=== PATIENT | male | born 1935 | race Caucasian/White ===

== ENCOUNTER 2016-07-14 21:04 | Emergency (ER) | payer MEDICARE, MEDICAID ==
--- NOTE | 2016-07-17 12:45 | ER ---
ADMIT: 07/14/2016 RM/LOC: ER [facility] MR#: [id number] [id number] [id number] ZAIRA FORRESTMOND Jamee [address] [place] [address] Emergency Room Report SEX: M AGE: 80 : 1935 DATE: 07/14/2016 SUBJECTIVE: The patient is a 80-year-old male with a past medical history of diabetes, hypertension, dementia, and who was brought to the ER with a chief complaint of right knee pain status post ground level fall. Per EMS, in the nursing care facility, they denied loss of consciousness or head trauma. The patient is alert and oriented to person, is not oriented to place and time, but he has a history of dementia. The patient recalls the incident vividly and he states that he tripped and he had no loss of consciousness and no head trauma. The patient complains of right knee pain. The patient denies any headaches, neck pain, nausea, vomiting, visual changes, chest pain, shortness of breath, and abdominal pain. PHYSICAL EXAMINATION: VITAL SIGNS: The patient has stable vitals. HEAD AND NECK: There is no sign of trauma, and blood sugar was also in the range of 200s checked by the paramedics. CHEST: Clear. No crepitation. HEART: Normal heart sounds. ABDOMEN: Soft. PELVIS: Stable. No tenderness in the abdomen. There is some mild swelling without any ballottement in the right knee, and there were some abrasions also on the right knee. Normal peripheral pulses. Normal active and passive range of motion in all extremities. There is very mild swelling on the right ankle without any tenderness on the malleolus. X-ray of the right ankle and right knee was negative for any fractures or dislocation. With the diagnosis of right knee abrasions and contusion, right ankle contusion and ground level fall, the patient was stable to be discharged to the nursing care facility to be followed up by the primary doctor as needed. Adama Price MD/ frantz JOB #: [id number] CC: Hamilton Dobson MD, Attending Physician
== END 2016-07-14 22:23 | disposition home or self-care (01) ==
LOC: ER 21:04
DX: S80.01XA Contusion of right knee, initial encounter (principal); S90.01XA Contusion of right ankle, initial encounter; E11.9 Type 2 diabetes mellitus without complications; I10 Essential (primary) hypertension; F32.9 Major depressive disorder, single episode, unspecified; F03.90 Unspecified dementia, unspecified severity, without behavioral disturbance, psychotic disturbance, mood disturbance, and anxiety; F41.9 Anxiety disorder, unspecified; Z79.82 Long term (current) use of aspirin; Z79.4 Long term (current) use of insulin; Z79.84 Long term (current) use of oral hypoglycemic drugs; Z79.899 Other long term (current) drug therapy; W18.30XA Fall on same level, unspecified, initial encounter